=== PATIENT | male | born 1995 | race African-American/Black ===

== ENCOUNTER 2018-09-11 13:12 | Emergency (ER) | payer OTHER ==
[2018-09-11 13:22] VITALS: BP 127/76
--- NOTE | 2018-09-11 13:27 | ED Physician Documentation ---
PD HPI ABD PAIN - Stated complaint Stated Complaint: VOMITING/CHILLS - Chief complaint Chief Complaint: Abd Pain - History obtained from History obtained from: Patient - History of Present Illness Timing - onset: Other (Otherwise healthy 23-year-old gentleman who is active duty in the [employer]. He has had 3 days of sore throat, chills and feeling hot and some aches associated with nausea and one episode of vomiting but more profuse diarrhea and abdominal cramping. He has not had any measured fevers. No recent travel or antibiotic use. No sick contacts.) Review of Systems Constitutional: reports: Chills, Myalgias, Fatigue Nose: denies: Rhinorrhea / runny nose Throat: reports: Sore throat Respiratory: denies: Cough GI: reports: Abdominal Pain, Nausea, Vomiting, Diarrhea. denies: Abdominal Swelling, Constipation, Bloody / black stool : denies: Dysuria, Frequency PD PAST MEDICAL HISTORY - Present Medications Home Medications: Ambulatory Orders Medication Instructions Recorded Confirmed Dicyclomine [Bentyl] 20 mg PO QID PRN #15 capsule 09/11/18 Ibuprofen [Motrin] 800 mg PO Q8H PRN #30 tablet 09/11/18 Loperamide [Imodium] 2 mg PO QID PRN #10 capsule 09/11/18 Ondansetron Odt [Zofran] 4 mg TL Q6H PRN #10 tablet 09/11/18 Penicillin V Potassium 500 mg PO Q6HR #40 tablet 09/11/18 - Allergies Allergies/Adverse Reactions: Allergies Allergy/AdvReac Type Severity Reaction Status Date / Time nickel Allergy Rash Verified 09/11/18 13:19 PD ED PE NORMAL - Vitals Vital signs reviewed: Yes - General General: Alert and oriented X 3, No acute distress - HEENT HEENT: PERRL, EOMI, Other (Tonsils are quite red and swollen especially on the right but without uvular deviation) - Neck Neck: Supple, no meningeal sign, No bony TTP - Cardiac Cardiac: RRR, No murmur - Respiratory Respiratory: No respiratory distress, Clear bilaterally - Abdomen Abdomen: Normal bowel sounds, Soft, Non tender - Back Back: No CVA TTP, No spinal TTP - Derm Derm: Normal color, Warm and dry, No rash - Neuro Neuro: Alert and oriented X 3, Normal speech Results - Vitals Vitals: Vital Signs - 24 hr 09/11/18 13:19 Temperature 36.6 C Heart Rate 65 Respiratory 16 Rate Blood Pressure 127/76 O2 Saturation 98 Oxygen O2 Source Room air - Labs Labs: Laboratory Tests 09/11/18 09/11/18 09/11/18 13:21 13:33 13:33 WBC 9.6 RBC 5.71 Hgb 16.1 Hct 48.0 MCV 84.1 MCH 28.2 MCHC 33.5 RDW 13.6 Plt Count 196 MPV 8.3 Neut # (Auto) 6.7 H Lymph # (Auto) 1.7 Day # (Auto) 1.2 H Eos # (Auto) 0.0 Baso # (Auto) 0.0 Absolute Nucleated RBC 0.00 Nucleated RBC % 0.0 Sodium 136 Potassium 4.0 Chloride 102 Carbon Dioxide 23 Anion Gap 11.0 BUN 17 Creatinine 0.9 Estimated GFR (MDRD) 126 Glucose 93 Calcium 9.4 Total Bilirubin 0.8 AST 20 ALT 16 Alkaline Phosphatase 50 Total Protein 8.2 Albumin 4.6 Globulin 3.6 Albumin/Globulin Ratio 1.3 Lipase 27 Group A Strep Rapid POSITIVE H PD MEDICAL DECISION MAKING - ED course ED course: 23-year-old gentleman with aches and fatigue and sore throat but also some abdominal complaints but normal abdominal examination. He was unable to produce stool here which I think is not a big deal since the positive strep test could certainly cause all of his symptoms. Departure - Departure Disposition: 01 Home, Self Care Clinical Impression: Strep throat Abdominal pain Qualifiers: Abdominal location: generalized Qualified Code(s): R10.84 - Generalized abdominal pain Diarrhea Qualifiers: Diarrhea type: presumed infectious Qualified Code(s): R19.7 - Diarrhea, unspecified Condition: Good Record reviewed to determine appropriate education?: Yes Instructions: ED Strep Pharyngitis Conf Prescriptions: Penicillin V Potassium 500 mg PO Q6HR #40 tablet Dicyclomine [Bentyl] 20 mg PO QID PRN #15 capsule PRN Reason: Abdominal Pain Ibuprofen [Motrin] 800 mg PO Q8H PRN #30 tablet PRN Reason: PAIN &/OR FEVER Loperamide [Imodium] 2 mg PO QID PRN #10 capsule PRN Reason: Diarrhea Ondansetron Odt [Zofran] 4 mg TL Q6H PRN #10 tablet PRN Reason: Nausea / Vomiting Comments: Your symptoms should get better within 48 hours with the antibiotics. Return if not better in that timeframe or if worse any time. Forms: Activity restrictions
[2018-09-11 13:38] LABS: BASOPHILS % (AUTO) 0.3 %; EOSINOPHILS % (AUTO) 0.5 %; HGB - HEMOGLOBIN 16.1 g/dL (14.0-18.0); LYMPHOCYTES # (AUTO) 1.7 10^3/uL (1.5-3.5); LYMPHOCYTES % (AUTO) 17.7 %; MEAN CORPUSCULAR HEMOGLOBIN 28.2 pg (27.0-31.0); MEAN CORPUSCULAR HGB CONC 33.5 g/dL (32.0-36.0); MEAN CORPUSCULAR VOLUME 84.1 fL (80.0-94.0); MEAN PLATELET VOLUME 8.3 fL (7.4-11.4); MONOCYTES # (AUTO) 1.2 10^3/uL (0.0-1.0); MONOCYTES % (AUTO) 12.1 %; NEUTROPHILS # (AUTO) 6.7 10^3/uL (1.5-6.6); NEUTROPHILS % (AUTO) 69.4 %; PLT - PLATELET COUNT 196 10^3/uL (130-450); RED BLOOD COUNT 5.71 10^6/uL (4.70-6.10); RED CELL DISTRIBUTION WIDTH 13.6 % (12.0-15.0); WHITE BLOOD COUNT 9.6 x10^3/uL (4.8-10.8)
[2018-09-11 13:49] LABS: ALBUMIN 4.6 g/dL (3.2-5.5); ALBUMIN/GLOBULIN RATIO 1.3 (1.0-2.2); BILIRUBIN,TOTAL 0.8 mg/dL (0.2-1.0); CALCIUM 9.4 mg/dL (8.5-10.3); CREATININE 0.9 mg/dL (0.6-1.2); TOTAL PROTEIN 8.2 g/dL (6.7-8.2)
== END 2018-09-11 14:02 | disposition home or self-care (01) ==
LOC: ED 13:12
DX: J02.0 Streptococcal pharyngitis (principal); R10.84 Generalized abdominal pain; R19.7 Diarrhea, unspecified
CPT/HCPCS: 36415; 80053; 83690; 85025; 87430; 99283